=== PATIENT | male | born 1960 | race Caucasian/White ===

== ENCOUNTER 2022-11-28 09:36 | Emergency (ER) | payer OTHER, SELFPAY ==
[2022-11-28 09:37] VITALS: BP 202/102; PULSE 84; RESP 18; TEMP 36.4; O2SAT 99; BMI 35.7
--- NOTE | 2022-11-28 09:58 | RAD_ITS ---
STUDY: X-RAY - LEFT SHOULDER REASON FOR EXAM: Male, 62 years old. Injury TECHNIQUE: 4 view(s) of the shoulder. COMPARISON: None. 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 There is degenerative arthrosis of the acromioclavicular joint without inferior osseous spur formation. Normal acromion. Normal humeral head and visualized proximal humerus. The soft tissue structures are unremarkable. Normal visualized pulmonary apex. RAD/Shoulder min 2 Views IMPRESSION: Degenerative changes of the acromioclavicular joint as well as the glenohumeral joint. Electronically Signed: Tito Cotton MD at 11:09 EST ,
--- NOTE | 2022-11-28 09:58 | RAD_ITS ---
STUDY: X-RAY - LEFT WRIST REASON FOR EXAM: Male, 62 years old. Pain following a recent fall. TECHNIQUE: 3 view(s) of the wrist were obtained. COMPARISON: None. FINDINGS: Normal visualized distal radius and ulna. Normal radiocarpal articulation. Normal distal radioulnar articulation. Normal carpal bones. Normal carpal articulations. Normal carpometacarpal articulation of the thumb. Normal second through fifth carpometacarpal articulations. Normal visualized metacarpal bones. Soft tissue swelling. RAD/Wrist min 3 Views IMPRESSION: Soft tissue swelling. Electronically Signed: Tito Cotton MD at 11:07 EST ,
--- NOTE | 2022-11-28 09:58 | EDS_ITS ---
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 Still able to drive his truck since then, he is right-hand dominant but having these pains in his left shoulder and wrist as a result of FOOSH. He did fall to his knees and scraped them, he states he is able to walk it is sore but he does not have significant limitations there. PFSH PFSH Medical History no medical history Allergy/AdvReac Type Severity Reaction Status Date / Time No Known Allergies Allergy Verified 11/28/22 09:43 Surgical History no surgical history Social History Smoking Status: Unknown if ever smoked ROS ROS ED Constitutional Constitutional ED: Denies chills or fever(s) Musculoskeletal Musculoskeletal: Reports extremity pain; Denies neck pain Integumentary Reports Abrasions; Denies rash Neurologic Neurologic: Denies headache(s), paresthesias or weakness EXAM Physical Exam Const Vital Signs: 11/28/22 09:37 Temperature 97.6 F L Temperature Source Temporal Pulse Rate 84 Respiratory Rate 18 Blood Pressure 202/102 H Blood Pressure Mean 135 Pulse Ox 99 Oxygen Delivery Method Room Air Positive well nourished and well developed General Appearance ED: well developed and NAD Neck full ROM and supple Chest Wall inspection of chest normal and palpation of chest normal Resp normal respiratory effort Effort and Inspection: able to speak in complete sentences Back/Spine normal ROM and normal to inspection Extremity Extremity Narrative: Tender near the coracoid process/biceps tendon left shoulder, without tenderness at the acromion, clavicle, acromioclavicular joint, or proximal humerus otherwise. Able to move the shoulder, but somewhat limited, can only abduct up to 90 degrees. Pain with flexing up but able to do it. With regards to the left wrist, painful movement and painful laboratory phlebotomist at the wrist, but no bony tenderness including the snuffbox. No deformities no swelling. Neurovascularly intact. No bony tenderness throughout the knees, there is some mild anterior swelling both knees where there are abrasions, all ligaments are stable and intact with short endpoints on stressing, full range of motion bilaterally. No other injuries or limitations. Neuro oriented x3, CN's II-XII intact bilaterally, moves all extremities, no focal motor deficits and no sensory deficits noted Sensorium / Orientation: alert Psych mental status grossly normal and thought process normal Skin Skin Narrative: Superficial abrasions both anterior knees without other wounds or lacerations or signs of infection. Rashes: no rashes Trauma: abrasion MDM MDM MDM Narrative Medical decision making narrative: Three-view x-ray series of the left wrist and 4 view x-ray series of the left shoulder both negative on my interpretation. Radiology in agreement. I think he sprained both joints, and/or strain of the origin of the biceps short head given the area where he is tender. 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 Radiography Diagnostic Testing: Clinical Impression(s) from Imaging Studies Shoulder X-Ray 11/28/22 09:58 IMPRESSION: Degenerative changes of the acromioclavicular joint as well as the glenohumeral joint. Electronically Signed: Tito Cotton MD at 11:09 EST , Wrist X-Ray 11/28/22 09:58 IMPRESSION: Soft tissue swelling. Electronically Signed: Tito Cotton MD at 11:07 EST , Discharge Plan Triage Chief Complaint: Fall ED Provider: Ciro Gonzales Dx/Rx/DC Orders Clinical Impression: Abrasion of both knees, Strain of left biceps tendon, Left wrist sprain, Fall from slipping on ice Instructions: Treating?Strains and Sprains Stand Alone Forms: Work Status Form Primary Care Provider: FREDI TAYLOR Referrals: Corporate,Care [Group of Physicians] - As soon as possible Town Doctor,Out of [Non-Staff] - Disposition Disposition: Home, Self Care
[2022-11-28 11:46] VITALS: RESP 18
== END 2022-11-28 11:47 | disposition home or self-care (01) ==
PROVIDERS: Emergency Provider Emergency Medicine; Visit Provider Emergency Medicine
DX: S46.212A Strain of muscle, fascia and tendon of other parts of biceps, left arm, initial encounter (principal); S63.502A Unspecified sprain of left wrist, initial encounter; S80.212A Abrasion, left knee, initial encounter; S80.211A Abrasion, right knee, initial encounter; Y92.812 Truck as the place of occurrence of the external cause; W18.30XA Fall on same level, unspecified, initial encounter
CPT/HCPCS: 73030; 73110; 99282